=== PATIENT | male | born 1995 | race Two or more races ===

== ENCOUNTER 2020-08-01 14:03 | Emergency (ER) | payer OTHER ==
[~2020-08-01] VITALS: Ht 172.7 cm; Wt 68.0 kg
[2020-08-01 14:30] VITALS: BP 132/58
== END 2020-08-01 17:31 | disposition left against medical advice (07) ==
LOC: EDBD 14:03 → ER 14:07
DX: R07.89 Other chest pain (principal)
CPT/HCPCS: 93005